=== PATIENT | male | born 1970 | race African-American/Black ===

== ENCOUNTER 2017-06-13 16:35 | Emergency (ER) | payer SELFPAY ==
[~2017-06-13] VITALS: Ht 177.8 cm; Wt 80.0 kg
[2017-06-13 16:42] VITALS: BP 137/80; PULSE 71; RESP 16; TEMP 98.5; O2SAT 98
[2017-06-13] MEDS ORDERED: KETOROLAC TROMETHAMINE 60 MG/2 ML (IM) VIAL IM ONE (17:15)
--- NOTE | 2017-06-13 17:19 | PD ---
HPI Chief Complaint: Injury Time Seen by Provider: 17:14 Travel History International Travel<30 days: No Contact w/Intl Traveler<30days: No Traveled to known affect area: No History of Present Illness HPI 47-year-old male here for left arm pain. He reports that yesterday he was having STD testing performed at the [facility]. He reports that they had to insert a needle 3 times into his left antecubital region in attempts to draw blood and they were having a very difficult time with it. Since then he has had pain/spasming sensation in his left arm. Pain is worse with movement. Denies fevers, chills, drainage. Denies numbness, tingling, weakness. No other complaints. PFSH Past Medical History Medical History: Denies Significant Hx Tetanus Vaccination: < 5 Years Influenza Vaccination: No Past Surgical History Abdominal Surgery: Yes (HERNIA REPAIR) Neurologic Surgery: Yes (tez on the head) Other Surgery: Yes (BODY PANDEY) Social History Alcohol Use: Yes (5 DRINKS PER WEEK) Tobacco Use: No Substance Use: No Allergies-Medications (Allergen,Severity, Reaction): Coded Allergies: No Known Allergies (Verified Adverse Reaction, Unknown, 06/13/17) Reported Meds & Prescriptions Reported Meds & Active Scripts Active No Active Prescriptions or Reported Medications Review of Systems General / Constitutional: No: Fever, Chills Musculoskeletal: Positive: Pain Neurologic: No: Paresthesia Physical Exam Narrative GENERAL: Well-nourished male in no acute distress SKIN: Warm and dry. 3 puncture wounds noted to the left antecubital region with mild tenderness to palpation, no significant bruising or soft tissue swelling. CARDIOVASCULAR: Regular rate and rhythm. No murmur appreciated. RESPIRATORY: No accessory muscle use. Clear to auscultation. Breath sounds equal bilaterally. Musculoskeletal: Skin as noted above. No range of motion limitation. Compartments of the left arm are soft. Radial pulse 2+. Capillary refill less than 2 seconds all digits left hand. NEUROLOGICAL: Awake and alert. No obvious cranial nerve deficits. Motor grossly within normal limits. Normal speech. Data Data Last Documented VS Vital Signs Date Time Temp Pulse Resp B/P (MAP) Pulse Ox O2 Delivery O2 Flow Rate FiO2 06/13/17 16:42 98.5 71 16 137/80 (99) 98 Room Air Orders Orders Ketorolac Inj (Toradol Inj) (06/13/17 17:15) Ed Discharge Order (06/13/17 17:02) [facility] Medical Decision Making Medical Screen Exam Complete: Yes Emergency Medical Condition: Yes Medical Record Reviewed: Yes Differential Diagnosis IV infiltration, superficial thrombophlebitis, hematoma Narrative Course Physical examination is benign. I suspect mild superficial thrombophlebitis/ infiltration of the IV. The patient was given Toradol here. He is stable for discharge. Diagnosis Primary Impression: Thrombophlebitis arm Additional Impression: IV infiltration Additional Instructions: Warm compresses to the affected area several times a day 10 minutes at a time. [id number] ibuprofen per dosing instructions the bottle. Follow-up with primary care physician. Return for any emergent medical conditions. Med/Other Pt SpecificInfo: No Change to Meds Scripts No Active Prescriptions or Reported Meds Disposition: 01 DISCHARGE HOME Condition: Stable Avni Farley Jun 13, 2017 17:19
== END 2017-06-13 17:32 | disposition home or self-care (01) ==
LOC: NEPK 16:35
DX: I80.8 Phlebitis and thrombophlebitis of other sites (principal)
CPT/HCPCS: 96372; 99284; J1885

== ENCOUNTER 2017-10-30 07:40 | Emergency (ER) | payer SELFPAY ==
[~2017-10-30] VITALS: Ht 182.9 cm; Wt 90.0 kg
[2017-10-30 07:54] VITALS: BP 144/96; PULSE 67; RESP 17; TEMP 98.4; O2SAT 98
[2017-10-30] MEDS ORDERED: TRAM50TA PO (11:00)
--- NOTE | 2017-10-30 11:06 | PD ---
HPI Chief Complaint: Back/ Neck Pain or Injury Time Seen by Provider: 08:22 Travel History International Travel<30 days: No Contact w/Intl Traveler<30days: No Traveled to known affect area: No History of Present Illness HPI This patient complains of back pain. He has bilateral lumbar muscular pain. He has had on and off for 5 years. No recent injury. This current flare is been going on for 3 days. No sciatic radiation. No muscle weakness or sensory loss. PFSH Past Surgical History Abdominal Surgery: Yes (HERNIA REPAIR) Neurologic Surgery: Yes (tez on the head) Other Surgery: Yes (BODY PANDEY) Social History Alcohol Use: Yes (5 DRINKS PER WEEK) Tobacco Use: No Substance Use: No Allergies-Medications (Allergen,Severity, Reaction): Coded Allergies: No Known Allergies (Verified Adverse Reaction, Unknown, 10/30/17) Reported Meds & Prescriptions Reported Meds & Active Scripts Active Tramadol (Tramadol HCl) 50 Mg Tab 50 Mg PO Q6H PRN Review of Systems General / Constitutional: No: Fever HENT: No: Headaches Cardiovascular: No: Chest Pain or Discomfort Physical Exam Narrative GASTROINTESTINAL: Abdomen soft, non-tender, nondistended. Positive bowel sounds. No hepato-splenomegaly, or palpable masses. No guarding. NEUROLOGICAL: Awake and alert. Pupils are equal round and reactive. Motor and sensory grossly within normal limits. Five out of 5 muscle strength in all muscle groups. Normal speech. SKIN: Focused skin assessment reveals no rash or ulcers. Skin is warm and dry. Palpation shows no induration or nodules. Back: Some vague lumbar tenderness but no swelling or bruising. Data Data Last Documented VS Vital Signs Date Time Temp Pulse Resp B/P (MAP) Pulse Ox O2 Delivery O2 Flow Rate FiO2 10/30/17 07:54 98.4 67 17 144/96 112 98 MDM Medical Decision Making Medical Screen Exam Complete: Yes Emergency Medical Condition: Yes Medical Record Reviewed: Yes Differential Diagnosis Lumbar strain, sciatica, disc herniation Narrative Course I have reviewed the patient's electronic medical record. Patient seems to have some musculoskeletal type back pain No objective findings on exam He is neurologically intact No red flags to suggest emergent imaging is indicated I gave him a 3 day prescription for tramadol The patient was advised to follow up with their physician and return if they worsen. Diagnosis Primary Impression: Musculoskeletal back pain Additional Instructions: The patient was advised to follow up with their physician and return if they worsen. The patient was warned about potential sedation for the medications they will receive on prescription. Med/Other Pt SpecificInfo: Prescription(s) given Scripts Tramadol (Tramadol) 50 Mg Tab 50 MG PO Q6H Y for PAIN, #12 TAB 0 Refills Prov: Richard Deluca MD 10/30/17 Disposition: 01 DISCHARGE HOME Condition: Stable Richard Deluca MD Oct 30, 2017 11:06
== END 2017-10-30 11:14 | disposition home or self-care (01) ==
LOC: NEPC 07:40
DX: M54.9 Dorsalgia, unspecified (principal)
CPT/HCPCS: 99283